=== PATIENT | male | born 2000 | race African-American/Black ===

== ENCOUNTER → 2024-07-27 | Outpatient (CLI) | payer OTHER ==
--- NOTE | 2024-07-27 12:02 | US ---
EXAMINATION TYPE: US liver DATE OF EXAM: 07/27/2024 COMPARISON: NONE CLINICAL INDICATION: Male, 24 years old with history of R94.5 ABNORMAL RESULTS OF LIVER FUNCTION STUD IES; TECHNIQUE: Grayscale and color Doppler imaging of the right upper quadrant was performed. FINDINGS: EXAM MEASUREMENTS: Liver Length: 22.9 cm Gallbladder Wall: 0.2 cm CBD: 0.4 cm Right Kidney: 12.5 x 4.9 x 6.9 cm ED PHYSICIANS NOTES: Pancreas: Obscured by bowel gas Liver: Increased attenuation, decreased visualization of vessels suggestive of fatty infiltrate Gallbladder: Contracted - patient properly NPO; ? Echogenic foci seen in LLD, limited visualization due to contraction Evidence for sonographic White's sign: No CBD: Measures 4 mm Right Kidney: Limited visualization WNL as visualized IMPRESSION: 1. Hepatomegaly with nonspecific pattern of the liver often seen with hepatocellular disease or hepat ic steatosis. 2. Probable tiny gallstone. [facility], Workstation: [email or web address], 07/27/2024 12:00 PM
== END | disposition home or self-care (01) ==
LOC: RADUSWWP 07:02
PROVIDERS: ATTEND Family Medicine
DX: R94.5 Abnormal results of liver function studies
CPT/HCPCS: 76705